=== PATIENT | male | born 1970 | race Caucasian/White ===

== ENCOUNTER 2017-01-20 16:40 | Emergency (ER) | payer OTHER ==
--- NOTE | 2017-01-20 18:03 | ED CLINICAL REPORT ---
Clinical Report - Physicians/Mid Levels [facility] [address] [place] [address] 01/20/2017 16:47 [id number] Time Seen: 17:02 Jan 20 2017. Arrived- By private vehicle. Historian- patient. CPT: ER phys charges level 3 plus (#892317). 2.6-7.5 cm simple scalp, neck,A (#[id number]). Report L&I (#[id number]). HISTORY OF PRESENT ILLNESS Chief Complaint: Injury to left forearm. The injury happened just prior to arrival. The patient sustained a laceration (( cut with jewel grinder).). 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 Patient is experiencing mild pain. No other injury. REVIEW OF SYSTEMS The patient sustained a laceration. No swelling, tingling, numbness, weakness or suspected foreign body. All systems otherwise negative, except as recorded above. PAST HISTORY See nurses notes. Tetanus immunization status is up-to-date. Medications: Omeprazole Oral. Tamulosin. Trazodone . Metformin. Allergies: Penicillins. SOCIAL HISTORY Former smoker. History of occasional drug use: marijuana. No alcohol use. ADDITIONAL NOTES The nursing notes have been reviewed. PHYSICAL EXAM Vital Signs: 01/20/2017 16:59 BP: 118/68. HR: 67. RR: 20. O2 saturation: 100%. Temp: 98.3 F. Pain level now: 2/10. Appearance: Alert. Head: Head atraumatic. ENT: Pharynx normal. Neck: Normal inspection. C-spine non-tender. Skin: Skin warm. Normal skin color. Extremities: Left forearm: mild tenderness and subcutaneous laceration located in the mid forearm. SEE LACERATION PROCEDURE NOTE. Neurovascular intact distally. No deformity. Extremities otherwise negative. Neuro, Vascular and Tendons: Vascular status intact. Sensation intact. Motor intact. Neuro: Oriented X 3. No motor deficit. No sensory deficit. Reflexes normal. PROGRESS AND PROCEDURES Laceration Repair: Location: left forearm. Length: 4 cm. Complexity: simple (local anesthesia used and sutured). Wound depth/shape- subcutaneous and linear. Wound is clean. Distal neuro/vascular/tendon status normal. No tendon deficit or laceration. Local anesthesia provided using 2% lidocaine with bicarb. Prepped with Hibiclens. Wound explored, cleansed, irrigated and examined to the base in bloodless field extensively with normal saline. Debrided. Closure of skin: interrupted 4-0. Post-procedure: he is stable and there are no complications. Bleeding is controlled and neuro-vascular status is intact distal to the wound. Dressing applied. Tetanus immunization up-to-date. Estimated blood loss: 1 mL. Patient/family counseled. Disposition: Discharged. Condition: stable. CLINICAL IMPRESSION Single deep laceration to the left forearm.No foreign body present. INSTRUCTIONS Protect wound and keep wound area clean. Change dressing twice daily. Keep wounds dry. You may wash wounds briefly, then dry. Apply neosporin twice daily. Sutures/[place] should be removed in ten days. Limit use of your left hand until better. Warnings: GENERAL WARNINGS: Return or contact your physician immediately if your condition worsens or changes unexpectedly, if not improving as expected, or if other problems arise. Your Current Medications: CONTINUE TAKING THE FOLLOWING MEDICATIONS: Metformin*. Omeprazole Oral. Tamulosin*. Trazodone *. Prescription Medications: Augmentin 875 mg: take 1 tablet orally every 12 hours for 7 days. Dispense fourteen (14). No refills. Substitution is permissible. Septra DS: take 1 tablet orally every 12 hours for 7 days. No refill. Substitution is not permissible. OTC Medications: Acetaminophen (available over the counter): take according to label instructions. Follow-up: Follow up with your doctor in ten days. Call for an appointment. Understanding of the discharge instructions verbalized by patient. Discharge instructions reviewed with and understanding was verbalized by spouse. (Electronically signed by Jose Guadalupe Magallanes MD 01/21/2017 14:36) Addenda for BRII MAIN VisitID: [id number] Date: 01/20/2017 01/20/2017 19:58 Pharmacy called with allergy to PCN. Changed to Keflex 500 po q 6 for 7 days . (Electronically signed by Jose Guadalupe Magallanes MD - 01/20/2017 19:58)
--- NOTE | 2017-01-20 18:03 | ED NURSING NOTES ---
Clinical Report - Nurses [facility] [address] [place] [address] 01/20/2017 16:47 [id number] Triage time 16:59 Jan 20 2017. Acuity: LEVEL 4. Chief Complaint: Location of symptoms- left forearm (laceration). Alert. No acute distress. KIKE COMA SCORE: Kike Coma Scale: 15- eyes open spontaneously (4); best verbal response- oriented x 4 (5); best motor response- obeys commands (6). --17:05 Kailee Segal R.N. 16:59 01/20/17. BP: 118/68. HR: 67. RR: 20. O2 saturation: 100%. Temp: 98.3 F. Pain level now: 10/23. --17:05 Kailee Segal R.N. Weight: 81.1 kg stated. Height/Length: 63 inches Per Patient. BMI: 31.7. --17:05 Kailee Segal R.N. Medications Metformin. --17:00 Kailee Segal R.N. Trazodone . --17:00 Kailee Segal R.N. Tamulosin. --17:00 Kailee Segal R.N. Omeprazole Oral. --17:01 Kailee Segal R.N. Allergies Penicillins. --17:01 Kailee Segal R.N. History Arrived by private vehicle. Historian: patient. Accompanied by family. Injury occurred. This occurred just prior to arrival. 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 PAST MEDICAL HX: Tetanus status: up-to-date. Immunizations: up-to-date. SOCIAL HX: Former smoker, end date 2014. History of occasional drug use: marijuana. No alcohol use. No infectious disease exposure. SELF HARM ASSESSMENT: A self harm assessment was performed. The patient answered "no" to the question "Do you have thoughts of harming or killing yourself?". FALL RISK ASSESSMENT: Fall risk assessment completed. No fall risk identified. NUTRITIONAL RISK ASSESSMENT: The nutritional risk assessment revealed no deficiencies. FUNCTIONAL ASSESSMENT: Functional assessment: no impairments noted. LEARNING NEEDS ASSESSMENT: The learning needs assessment revealed no barriers. ABUSE ASSESSMENT: Abuse assessment: The patient was asked "Do you feel safe in your home?". SKIN INTEGRITY ASSESSMENT: Skin integrity risk assessment completed. No skin integrity risk identified. --17:05 Kailee Segal R.N. PROBLEMS: Enlarged prostate. Hypercholesterolemia. Diabetes Mellitus. --17:03 Kailee Segal R.N. ADDITIONAL SURGERIES: Cholecystectomy. --17:03 Kailee Segal R.N. Interventions ID band on patient. --17:05 Kailee Segal R.N. PHYSICAL ASSESSMENT Ambulatory to room. GENERAL / NEURO / PSYCH: Oriented X 4. Alert. Appears in no acute distress. EXTREMITIES: Neuro-vascular status intact to the extremity. Left forearm: 3.0 cm laceration with controlled bleeding. SKIN: Skin is warm and dry. --17:06 Kailee Segal R.N. NURSING PROGRESS NOTES Patient gowned. Patient identifiers checked. Call light placed in reach. Side rails up x 1. Bed placed in lowest position. Brakes of bed on. --17:06 Kailee Segal R.N. DISPOSITION / DISCHARGE Departure time: 18:15 Jan 20 2017. Condition at departure: improved. No learning barriers present. Discharge instructions provided and reviewed with the patient. Reviewed medication(s) side effects, precautions, dosing and course information. Prescription(s) given to the patient. Reviewed referral to a primary care physician. Work note given. Patient verbalized understanding. Written instructions provided in Slovenian. The patient was discharged home and accompanied by spouse. He left the Emergency Department ambulatory and via private vehicle. Spouse driving. FALL RISK ASSESSMENT: Fall risk assessment completed. No fall risk identified. --18:15 Kailee Segal R.N. 18:13 01/20/17. BP: 118/85. HR: 77. RR: 16. O2 saturation: 91%. Pain level now: 09/22. --18:15 Kailee Segal R.N. Locked/Released at 01/21/2017 13:26 by Kailee Segal R.N.
--- NOTE | 2017-01-20 18:03 | ED NURSING NOTES ---
Clinical Report - Nurses [facility] [address] [place] [address] 01/20/2017 16:47 [id number] TRI[facility] Triage time 16:59 Jan 20 2017. Acuity: LEVEL 4. Chief Complaint: Location of symptoms- left forearm (laceration). Alert. No acute distress. KIKE COMA SCORE: Kike Coma Scale: 15- eyes open spontaneously (4); best verbal response- oriented x 4 (5); best motor response- obeys commands (6). --17:05 Kailee Segal R.N. 16:59 01/20/17. BP: 118/68. HR: 67. RR: 20. O2 saturation: 100%. Temp: 98.3 F. Pain level now: 10/23. --17:05 Kailee Segal R.N. Weight: 81.1 kg stated. Height/Length: 63 inches Per Patient. BMI: 31.7. --17:05 Kailee Segal R.N. Medications Metformin. --17:00 Kailee Segal R.N. Trazodone . --17:00 Kailee Segal R.N. Tamulosin. --17:00 Kailee Segal R.N. Omeprazole Oral. --17:01 Kailee Segal R.N. Allergies Penicillins. --17:01 Kailee Segal R.N. History Arrived by private vehicle. Historian: patient. Accompanied by family. Injury occurred. This occurred just prior to arrival. 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 PAST MEDICAL HX: Tetanus status: up-to-date. Immunizations: up-to-date. SOCIAL HX: Former smoker, end date 2014. History of occasional drug use: marijuana. No alcohol use. No infectious disease exposure. SELF HARM ASSESSMENT: A self harm assessment was performed. The patient answered "no" to the question "Do you have thoughts of harming or killing yourself?". FALL RISK ASSESSMENT: Fall risk assessment completed. No fall risk identified. NUTRITIONAL RISK ASSESSMENT: The nutritional risk assessment revealed no deficiencies. FUNCTIONAL ASSESSMENT: Functional assessment: no impairments noted. LEARNING NEEDS ASSESSMENT: The learning needs assessment revealed no barriers. ABUSE ASSESSMENT: Abuse assessment: The patient was asked "Do you feel safe in your home?". SKIN INTEGRITY ASSESSMENT: Skin integrity risk assessment completed. No skin integrity risk identified. --17:05 Kailee Segal R.N. PROBLEMS: Enlarged prostate. Hypercholesterolemia. Diabetes Mellitus. --17:03 Kailee Segal R.N. ADDITIONAL SURGERIES: Cholecystectomy. --17:03 Kailee Segal R.N. Interventions ID band on patient. --17:05 Kailee Segal R.N. PHYSICAL ASSESSMENT Ambulatory to room. GENERAL / NEURO / PSYCH: Oriented X 4. Alert. Appears in no acute distress. EXTREMITIES: Neuro-vascular status intact to the extremity. Left forearm: 3.0 cm laceration with controlled bleeding. SKIN: Skin is warm and dry. --17:06 Kailee Segal R.N. NURSING PROGRESS NOTES Patient gowned. Patient identifiers checked. Call light placed in reach. Side rails up x 1. Bed placed in lowest position. Brakes of bed on. --17:06 Kailee Segal R.N. DISPOSITION / DISCHARGE Departure time: 18:15 Jan 20 2017. Condition at departure: improved. No learning barriers present. Discharge instructions provided and reviewed with the patient. Reviewed medication(s) side effects, precautions, dosing and course information. Prescription(s) given to the patient. Reviewed referral to a primary care physician. Work note given. Patient verbalized understanding. Written instructions provided in Spanish. The patient was discharged home and accompanied by spouse. He left the Emergency Department ambulatory and via private vehicle. Spouse driving. FALL RISK ASSESSMENT: Fall risk assessment completed. No fall risk identified. --18:15 Kailee Segal R.N. 18:13 01/20/17. BP: 118/85. HR: 77. RR: 16. O2 saturation: 91%. Pain level now: 09/22. --18:15 Kailee Segal R.N. Locked/Released at 01/21/2017 13:26 by Kailee Segal R.N.
--- NOTE | 2017-01-20 18:03 | ED CLINICAL REPORT ---
Clinical Report - Physicians/Mid Levels [facility] [address] [place] [address] 01/20/2017 16:47 [id number] Time Seen: 17:02 Jan 20 2017. Arrived- By private vehicle. Historian- patient. CPT: ER phys charges level 3 plus (#742715). 2.6-7.5 cm simple scalp, neck,A (#932074). Report L&I (#[id number]). HISTORY OF PRESENT ILLNESS Chief Complaint: Injury to left forearm. The injury happened just prior to arrival. The patient sustained a laceration (( cut with tool and cutter grinder).). 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 Patient is experiencing mild pain. No other injury. REVIEW OF SYSTEMS The patient sustained a laceration. No swelling, tingling, numbness, weakness or suspected foreign body. All systems otherwise negative, except as recorded above. PAST HISTORY See nurses notes. Tetanus immunization status is up-to-date. Medications: Omeprazole Oral. Tamulosin. Trazodone . Metformin. Allergies: Penicillins. SOCIAL HISTORY Former smoker. History of occasional drug use: marijuana. No alcohol use. ADDITIONAL NOTES The nursing notes have been reviewed. PHYSICAL EXAM Vital Signs: 01/20/2017 16:59 BP: 118/68. HR: 67. RR: 20. O2 saturation: 100%. Temp: 98.3 F. Pain level now: 2/10. Appearance: Alert. Head: Head atraumatic. ENT: Pharynx normal. Neck: Normal inspection. C-spine non-tender. Skin: Skin warm. Normal skin color. Extremities: Left forearm: mild tenderness and subcutaneous laceration located in the mid forearm. SEE LACERATION PROCEDURE NOTE. Neurovascular intact distally. No deformity. Extremities otherwise negative. Neuro, Vascular and Tendons: Vascular status intact. Sensation intact. Motor intact. Neuro: Oriented X 3. No motor deficit. No sensory deficit. Reflexes normal. PROGRESS AND PROCEDURES Laceration Repair: Location: left forearm. Length: 4 cm. Complexity: simple (local anesthesia used and sutured). Wound depth/shape- subcutaneous and linear. Wound is clean. Distal neuro/vascular/tendon status normal. No tendon deficit or laceration. Local anesthesia provided using 2% lidocaine with bicarb. Prepped with Hibiclens. Wound explored, cleansed, irrigated and examined to the base in bloodless field extensively with normal saline. Debrided. Closure of skin: interrupted 4-0. Post-procedure: he is stable and there are no complications. Bleeding is controlled and neuro-vascular status is intact distal to the wound. Dressing applied. Tetanus immunization up-to-date. Estimated blood loss: 1 mL. Patient/family counseled. Disposition: Discharged. Condition: stable. CLINICAL IMPRESSION Single deep laceration to the left forearm.No foreign body present. INSTRUCTIONS Protect wound and keep wound area clean. Change dressing twice daily. Keep wounds dry. You may wash wounds briefly, then dry. Apply neosporin twice daily. Sutures/[place] should be removed in ten days. Limit use of your left hand until better. Warnings: GENERAL WARNINGS: Return or contact your physician immediately if your condition worsens or changes unexpectedly, if not improving as expected, or if other problems arise. Your Current Medications: CONTINUE TAKING THE FOLLOWING MEDICATIONS: Metformin*. Omeprazole Oral. Tamulosin*. Trazodone *. Prescription Medications: Augmentin 875 mg: take 1 tablet orally every 12 hours for 7 days. Dispense fourteen (14). No refills. Substitution is permissible. Septra DS: take 1 tablet orally every 12 hours for 7 days. No refill. Substitution is not permissible. OTC Medications: Acetaminophen (available over the counter): take according to label instructions. Follow-up: Follow up with your doctor in ten days. Call for an appointment. Understanding of the discharge instructions verbalized by patient. Discharge instructions reviewed with and understanding was verbalized by spouse. (Electronically signed by Jose Guadalupe Magallanes MD 01/21/2017 14:36) Addenda for BRII MAIN VisitID: [id number] Date: 01/20/2017 01/20/2017 19:58 Pharmacy called with allergy to PCN. Changed to Keflex 500 po q 6 for 7 days . (Electronically signed by Jose Guadalupe Magallanes MD - 01/20/2017 19:58)
--- NOTE | 2017-01-21 14:36 | ED MAR SUMMARY ---
..... Medication Administration Record [facility] [address] [place], [place] [id number] Patient: BRII MAIN Visit ID: [id number] 46y, M Weight: 81.1 kg Height/Length: 63 in BMI: 31.7 ALLERGIES: Penicillins
--- NOTE | 2017-01-21 14:36 | ED DISCHARGE INSTRUCTIONS ---
Patient: BRII MAIN General Instructions [facility] VisitID: [id number] [place] [address] 46y, M Registration Date/Time: 01/20/2017 Single deep laceration to the left forearm.No foreign body present. INSTRUCTIONS Protect wound and keep wound area clean. Change dressing twice daily. Keep wounds dry. You may wash wounds briefly, then dry. Apply neosporin twice daily. Sutures/florida should be removed in ten days. Limit use of your left hand until better. Warnings: GENERAL WARNINGS: Return or contact your physician immediately if your condition worsens or changes unexpectedly, if not improving as expected, or if other problems arise. Your Current Medications: CONTINUE TAKING THE FOLLOWING MEDICATIONS: Metformin*. Omeprazole Oral. Tamulosin*. Trazodone *. Prescription Medications: Augmentin 875 mg: take 1 tablet orally every 12 hours for 7 days. Dispense fourteen (14). No refills. Substitution is permissible. Septra DS: take 1 tablet orally every 12 hours for 7 days. No refill. Substitution is not permissible. OTC Medications: Acetaminophen (available over the counter): take according to label instructions. Follow-up: Follow up with your doctor in ten days. Call for an appointment. Understanding of the discharge instructions verbalized by patient. Discharge instructions reviewed with and understanding was verbalized by spouse. ADDITIONAL INFORMATION Laceration (All Closures) Alaceration is a cut through the skin. This will usually require stitches (sutures) or florida if it is deep. Minor cuts may be treated with a surgical tape closure orskin glue. Home care The following guidelines will help you care for your laceration at home: Extremity, face, or trunk wounds Keep the wound clean and dry. If a bandage was applied and it becomes wet or dirty, replace it. Otherwise, leave it in place for the first 24 hours. If stitches or florida were used, clean the wound daily. After removing the bandage, wash the area with soap and water. Use a wet cotton swab to loosen and remove any blood or crust that forms. The doctor may prescribe an antibiotic cream or ointment to prevent infection. Do not stop taking this medication until you have finished the prescribed course or the doctor tells you to stop. The doctor may also prescribe medications for pain. Follow the doctors instructions for taking these medications. You may remove the bandage to shower as usual after the first 24 hours, but do not soak the area in water (no swimming) until the stitches or florida are removed. If surgical tape was used, keep the area clean and dry. If it becomes wet, blot it dry with a towel. If skin glue was used, do not scratch, rub, or pick at the adhesive film. Do not place tape directly over the film. Do not apply liquid, ointment, or creams to the wound while the film is in place. Do not clean the wound with peroxide and do not apply ointments. Avoid activities that cause heavy sweating until the film has fallen off. Protect the wound from prolonged exposure to sunlight or tanning lamps. You may shower as usual but do not soak the wound in water (no baths or swimming). The film will fall off by itself in 510 days. Scalp wounds During the first two days, you may carefully rinse your hair in the shower to remove blood, glass or dirt particles. After two days, you may shower and shampoo your hair normally. Do not soak your scalp in the tub or go swimming until the stitches or florida have been removed. Talk with your doctor before applying any antibiotic ointment to the wound. Mouth wounds Eat soft foods to reduce pain. If the cut is inside of your mouth, clean by rinsing after each meal and at bedtime with a mixture of equal parts water and hydrogen peroxide (do not swallow!). Or, you can use a cotton swab to directly apply hydrogen peroxide onto the cut. Mouth wounds can be painful when eating. You may use an [id number] local numbing solution for pain relief. If this is not available, you may use any numbing solution for teething babies. You may apply this directly to the sores with a cotton-tip swab or with your finger. Follow-up care Follow up with your health care provider. Most skin wounds heal within ten days. Mouth and facial wounds heal within five days. However, even with proper treatment, a wound infection may sometimes occur. Therefore, you should check the wound daily for signs of infection listed below. Stitches should be removed from the face within five days; stitches and florida should be removed from other parts of the body within 714 days. If dissolving stitches were used in the mouth, these will fall out or dissolve without the need for removal. If tape closures were used, remove them yourself if they have not fallen off after 7 days. Ifskin glue was used, the film will fall off by itself in 510 days. When to seek medical care Get prompt medical attention if any of these occur: Bleeding not controlled by direct pressure Signs of infection, including increasing pain in the wound, increasing wound redness or swelling, or pus coming from the wound Fever of 100.4F (38C) or higher, or as directed by your health care provider Stitches or florida come apart or fall out or surgical tape falls off before 7 days Wound edges re-open Bandage Change If the bandage becomes wet or dirty, replace it. Otherwise, leave it in place for the first 24 hours. Then once a day: After removing the bandage, wash the area with soap and water. Use a wet cotton swab to loosen and remove any blood or crust that forms on the wound. After cleaning, apply a thin layer of antibiotic ointment or cream. Reapply the bandage. You may shower as usual after the first 24 hours. If the bandage is on an arm or leg, cover it with a plastic bag rubber banded at both ends before showering. No tub baths or swimming until the bandage is removed and the wound healed (at least 7 days). Sulfamethoxazole, Trimethoprim Oral tablet What is this medicine? SULFAMETHOXAZOLE; TRIMETHOPRIM or SMX-TMP (suhl fuh meth OK zuleyka zohl; trye METH oh prim) is a combination of a sulfonamide antibiotic and a second antibiotic, trimethoprim. It is used to treat or prevent certain kinds of bacterial infections. It will not work for colds, flu, or other viral infections. How should I use this medicine? Take this medicine by mouth with a full glass of water. Follow the directions on the prescription label. Take your medicine at regular intervals. Do not take it more often than directed. Do not skip doses or stop your medicine early. Talk to your microbiology lab analyst regarding the use of this medicine in children. Special care may be needed. This medicine has been used in children as young as 2 months of age. What side effects may I notice from receiving this medicine? Side effects that you should report to your doctor or health healthcare applications analyst as soon as possible: allergic reactions like skin rash or hives, swelling of the face, lips, or tongue breathing problems fever or chills, sore throat irregular heartbeat, chest pain joint or muscle pain pain or difficulty passing urine red pinpoint spots on skin redness, blistering, peeling or loosening of the skin, including inside the mouth unusual bleeding or bruising unusually weak or tired yellowing of the eyes or skin Side effects that usually do not require medical attention (report to your doctor or health healthcare applications analyst if they continue or are bothersome): diarrhea dizziness headache loss of appetite nausea, vomiting nervousness What may interact with this medicine? Do not take this medicine with any of the following medications: aminobenzoate potassium dofetilide metronidazole This medicine may also interact with the following medications: JESSIE inhibitors like benazepril, enalapril, lisinopril, and ramipril cyclosporine digoxin diuretics indomethacin medicines for diabetes methenamine methotrexate phenytoin potassium supplements pyrimethamine sulfinpyrazone tricyclic antidepressants warfarin What if I miss a dose? If you miss a dose, take it as soon as you can. If it is almost time for your next dose, take only that dose. Do not take double or extra doses. Where should I keep my medicine? Keep out of the reach of children. Store at room temperature between 20 to 25 degrees C (68 to 77 degrees F). Protect from light. Throw away any unused medicine after the expiration date. What should I tell my health care provider before I take this medicine? They need to know if you have any of these conditions: anemia asthma being treated with anticonvulsants if you frequently drink alcohol containing drinks kidney disease liver disease low level of folic acid or [id number] dehydrogenase poor nutrition or malabsorption porphyria severe allergies thyroid disorder an unusual or allergic reaction to sulfamethoxazole, trimethoprim, sulfa drugs, other medicines, foods, dyes, or preservatives or trying to get breast-feeding What should I watch for while using this medicine? Tell your doctor or health healthcare applications analyst if your symptoms do not improve. Drink several glasses of water a day to reduce the risk of kidney problems. Do not treat diarrhea with over the counter products. Contact your doctor if you have diarrhea that lasts more than 2 days or if it is severe and watery. This medicine can make you more sensitive to the sun. Keep out of the sun. If you cannot avoid being in the sun, wear protective clothing and use a sunscreen. Do not use sun lamps or tanning beds/booths. You have been given the following additional information: Laceration, All Dressing Change Sulfamethoxazole, Trimethoprim Oral tablet Limit use of your left hand until better. (Electronically signed by Jose Guadalupe Magallanes MD 01/21/2017 14:36)
--- NOTE | 2017-01-21 14:36 | ED MED RECONCILIATION SUMMARY ---
Patient: BRII MAIN Medication Reconciliation Report [facility] VisitID: [id number] [address] [place] [address] 46y, M Registration Date/Time: 01/20/2017 Weight: 81.1 kg Height/Length: 63 in. BMI: 31.7 ALLERGIES: Penicillins The patient's Home Medications are listed below: CONTINUE TAKING THE FOLLOWING MEDICATIONS: Metformin Omeprazole Oral Tamulosin Trazodone The source(s) of the original Home Medication information: Not obtained. The following Medications were given to the patient in the Emergency Department: None. The following Medications were prescribed to the patient: Acetaminophen (available over the counter): take according to label instructions. -- Jose Guadalupe Magallanes MD Augmentin 875 mg: take 1 tablet orally every 12 hours for 7 days. Dispense fourteen (14). No refills. Substitution is permissible. -- Jose Guadalupe Magallanes MD Septra DS: take 1 tablet orally every 12 hours for 7 days. No refill. Substitution is not permissible. -- Jose Guadalupe Magallanes MD
--- NOTE | 2017-01-21 14:36 | ED MED RECONCILIATION SUMMARY ---
Patient: BRII MAIN Medication Reconciliation Report [facility] VisitID: [id number] [address] [place] [address] 46y, M Registration Date/Time: 01/20/2017 Weight: 81.1 kg Height/Length: 63 in. BMI: 31.7 ALLERGIES: Penicillins The patient's Home Medications are listed below: CONTINUE TAKING THE FOLLOWING MEDICATIONS: Metformin Omeprazole Oral Tamulosin Trazodone The source(s) of the original Home Medication information: Not obtained. The following Medications were given to the patient in the Emergency Department: None. The following Medications were prescribed to the patient: Acetaminophen (available over the counter): take according to label instructions. -- Jose Guadalupe Magallanes MD Augmentin 875 mg: take 1 tablet orally every 12 hours for 7 days. Dispense fourteen (14). No refills. Substitution is permissible. -- Jose Guadalupe Magallanes MD Septra DS: take 1 tablet orally every 12 hours for 7 days. No refill. Substitution is not permissible. -- Jose Guadalupe Magallanes MD
--- NOTE | 2017-01-21 14:36 | ED MAR SUMMARY ---
..... Medication Administration Record [facility] [address] [place], [place] [id number] Patient: BRII MAIN Visit ID: [id number] 46y, M Weight: 81.1 kg Height/Length: 63 in BMI: 31.7 ALLERGIES: Penicillins
== END 2017-01-20 18:15 | disposition home or self-care (01) ==
LOC: ED SRH 16:40
DX: S51.812A Laceration without foreign body of left forearm, initial encounter (principal); W31.2XXA Contact with powered woodworking and forming machines, initial encounter; Y99.0 Civilian activity done for income or pay; Y93.89 Activity, other specified; Y92.63 Factory as the place of occurrence of the external cause